=== PATIENT | female | born 1945 | race Caucasian/White ===

== ENCOUNTER 2017-02-08 14:44 | Emergency (ER) | payer OTHER, MEDICARE ==
[~2017-02-08] VITALS: Ht 162.6 cm; Wt 78.5 kg
[~2017-02-08 14:44] MED LIST: ALEVE220 M2 PO; AMOX TR-K CLV1 EAC4 PO; ASCORBIC ACID500 M3 PO; CALCIUM 600 +1 EAC7 PO; CEFDINIR300 MG PO; CELEXA20 MG PO; CELEXA40 MG PO; CITALOPRAM HBR10 MG PO; CITALOPRAM HBR20 MG PO; CYMBALTA60 MG PO; FOLIC ACID0.4 MG; FOLIC ACID1 MG PO; HYDROXYCHLOROQ200 MG PO; KEFLEX500 MG PO; LIDODERM 5% P1 PATCH TD; LO-DOSE ASPIRIN81 M1 PO; LUTEIN; LUTEIN PO; MAGIC MOUTHWASH1 ML MM; MESTINON60 MG PO; Mestinon PO; NAPROSYN500 MG PO; NORCO 7.5/321 TABLET PO; ORENCIA; ORENCIA IV; PLAQUENIL200 MG PO; Plaquenil PO; RESTASIS 01 DROP/0.4 BOTH EYES; VIGAMOX 0.60 DROP/3 RIGHT EYE; VITAMIN E400 UNI6 PO; celeXA PO
[2017-02-08 15:56] VITALS: BP 121/85
== END 2017-02-08 15:58 | disposition home or self-care (01) ==
LOC: EME 14:44
DX: M54.31 Sciatica, right side (principal); G43.909 Migraine, unspecified, not intractable, without status migrainosus; M06.9 Rheumatoid arthritis, unspecified; M35.00 Sjogren syndrome, unspecified; G70.00 Myasthenia gravis without (acute) exacerbation
CPT/HCPCS: 99281; 99283